=== PATIENT | male | born 1975 | race Caucasian/White ===

== ENCOUNTER 2016-11-12 18:30 | Emergency (ER) | payer BC ==
[2016-11-12 18:31] VITALS: BP 162/99; PULSE 74; RESP 14; TEMP 98.1; O2SAT 97
--- NOTE | 2016-11-12 19:19 | PD ---
HPI Chief Complaint: Chest Pain Time Seen by Provider: 19:19 Travel History International Travel<30 days: No Contact w/Intl Traveler<30days: No Traveled to known affect area: No History of Present Illness HPI 40-year-old male came to the emergency room with history of left-sided chest pain with some radiation to his left arm. This started about 2 and half hours ago while he was driving. Currently the pain is 2 out of 10 and patient says it certainly much better than when it first started. He did not take any medications. Patient has significant history of coronary artery disease with 2 stents being placed 4 years ago. There was some associated shortness of breath and he is burping constantly as he is talking. He attributes it to probably his GERD. However given his coronary artery disease history he thought it would be important to come to the emergency room and be checked. Patient is from [place] and he drove from there to [place] for vacation and today he was returning back. Vital signs were stable in the emergency room. Patient has history of anxiety and says he feels anxious right now. [facility] Past Medical History Narrative Medical List of his past medical history is reviewed from the nursing note. Patient quit smoking 15 days ago. Social History Tobacco Use: No Allergies-Medications (Allergen,Severity, Reaction): Coded Allergies: No Known Allergies (Unverified , 11/12/16) Comments No known drug allergies. Narrative Medication Awaiting for the nurse to complete the medical intensive sedation. Patient did tell me that he is on Plavix and takes all his medications like he is supposed to. His primary care reduced the dose of his antihypertensive after he has lost 160 pounds. Review of Systems Except as stated in HPI: all other systems reviewed are Neg Physical Exam Narrative GENERAL: Awake, alert, obese, anxious, mild distress, recurrent burping SKIN: Warm and dry. HEAD: Atraumatic. Normocephalic. EYES: Pupils equal and round. No scleral icterus. No injection or drainage. ENT: No nasal bleeding or discharge. Mucous membranes pink and moist. NECK: Trachea midline. No JVD. CARDIOVASCULAR: Regular rate and rhythm. No murmur appreciated. RESPIRATORY: No accessory muscle use. Clear to auscultation. Breath sounds equal bilaterally. GASTROINTESTINAL: Abdomen soft, non-tender, nondistended. Hepatic and splenic margins not palpable. MUSCULOSKELETAL: No obvious deformities. No clubbing. No cyanosis. No edema. NEUROLOGICAL: Awake and alert. No obvious cranial nerve deficits. Motor grossly within normal limits. Normal speech. PSYCHIATRIC: Appropriate mood and affect; insight and judgment normal. Data Data Last Documented VS Vital Signs Date Time Temp Pulse Resp B/P Pulse Ox O2 Delivery O2 Flow Rate FiO2 11/12/16 19:32 98 Room Air 11/12/16 18:31 98.1 74 14 162/99 Orders Electrocardiogram (11/12/16 19:26) Basic Metabolic Panel (Bmp) (11/12/16 19:26) Ckmb (Isoenzyme) Profile (11/12/16 19:26) Complete Blood Count With Diff (11/12/16 19:26) Magnesium (Mg) (11/12/16 19:26) Prothrombin Time / Inr (Pt) (11/12/16 19:26) Act Partial Throm Time (Ptt) (11/12/16 19:26) Troponin I (11/12/16 19:26) Chest, Single Ap (11/12/16 19:26) Ecg Monitoring (11/12/16 19:26) Bilateral Bp Monitoring (11/12/16 19:26) Iv Access Insert/Monitor (11/12/16 19:26) Oximetry (11/12/16 19:26) Oxygen Administration (11/12/16 19:26) D-Dimer (11/12/16 19:40) Alprazolam (Xanax) (11/12/16 20:00) Aspirin Chew (Aspirin Chew) (11/12/16 20:15) ^ Saline Lock (11/12/16 20:11) CKMB (11/12/16 19:35) CKMB% (11/12/16 19:35) Labs Laboratory Tests Test 11/12/16 19:35 White Blood Count 8.8 TH/MM3 Red Blood Count 5.57 MIL/MM3 Hemoglobin 16.6 GM/DL Hematocrit 48.6 % Mean Corpuscular Volume 87.3 FL Mean Corpuscular Hemoglobin 29.7 PG Mean Corpuscular Hemoglobin 34.1 % Concent Red Cell Distribution Width 13.2 % Platelet Count 233 TH/MM3 Mean Platelet Volume 9.2 FL Neutrophils (%) (Auto) 56.4 % Lymphocytes (%) (Auto) 30.6 % Monocytes (%) (Auto) 9.8 % Eosinophils (%) (Auto) 2.5 % Basophils (%) (Auto) 0.7 % Neutrophils # (Auto) 5.0 TH/MM3 Lymphocytes # (Auto) 2.7 TH/MM3 Monocytes # (Auto) 0.9 TH/MM3 Eosinophils # (Auto) 0.2 TH/MM3 Basophils # (Auto) 0.1 TH/MM3 CBC Comment DIFF FINAL Differential Comment Prothrombin Time 10.6 SEC Prothromb Time International 1.0 RATIO Ratio Activated Partial 27.6 SEC Thromboplast Time D-Dimer Quantitative (PE/DVT) 0.41 MG/L FEU Sodium Level 140 MEQ/L Potassium Level 4.0 MEQ/L Chloride Level 108 MEQ/L Carbon Dioxide Level 24.0 MEQ/L Anion Gap 8 MEQ/L Blood Urea Nitrogen 14 MG/DL Creatinine 1.13 MG/DL Estimat Glomerular Filtration 72 ML/MIN Rate Random Glucose 115 MG/DL Calcium Level 8.5 MG/DL Magnesium Level 2.3 MG/DL Total Creatine Kinase 180 U/L Creatine Kinase MB 1.7 NG/ML Troponin I LESS THAN 0.02 NG/ML MDM Medical Decision Making Medical Screen Exam Complete: Yes Emergency Medical Condition: Yes Medical Record Reviewed: Yes Interpretation(s) Twelve-lead EKG was reviewed by me. Normal sinus rhythm, normal axis, nonspecific ST-T wave changes. Heart rate of 77 bpm. Differential Diagnosis ACS, and non-STEMI, PE, nonspecific chest pain Narrative Course 8:10 PM patient has been given 0.5 mg of Xanax for his anxiety. Awaiting for the blood test results to come back. Patient does have a very high risk for ACS. I've explained this to him and if all the test results come back within normal limit I do intend to observe him and chest pain center. 8:50 PM awaiting for the d-dimer. Rest of the blood test results are within normal limits. However my medical student and just spoke with the patient and he has expressed his desire to leave. If he does end up leaving it would be against medical advise. He has been explained about this and the benefits of staying or leaving. Patient is in full capacity to make the decision for himself. 11:23 PM d-dimer was a send out lab because of the machine being broken at the main lab. It was just resulted in its within normal limit. Patient still wants to go home and he'll leave AMA. Procedures EKG Prior to Arrival: Yes Diagnosis Primary Impression: Chest pain Qualified Code: R07.9 - Chest pain, unspecified type Disposition: 07 AGAINST MEDICAL ADVICE Condition: Serious Omid Tang MD Nov 12, 2016 19:19
[2016-11-12 19:32] VITALS: O2SAT 98
[2016-11-12 19:56] LABS: BASOPHIL # 0.1 TH/MM3 (0-0.2); BASOPHIL % 0.7 % (0.0-2.0); EOSINOPHIL # 0.2 TH/MM3 (0-0.4); EOSINOPHIL % 2.5 % (0.0-4.0); HEMATOCRIT 48.6 % (39.0-51.0); HEMO FLAGS DIFF FINAL; LYMPH % 30.6 % (9.0-44.0); LYMPHOCYTE # 2.7 TH/MM3 (1.0-4.8); MEAN CELL VOLUME 87.3 FL (80.0-100.0); MEAN CORPUSCULAR HEMOGLOBIN 29.7 PG (27.0-34.0); MEAN CORPUSCULAR HGB CONC 34.1 % (32.0-36.0); MONO % 9.8 % (0.0-8.0); NEUT % 56.4 % (16.0-70.0); PLATELET COUNT 233 TH/MM3 (150-450); RED BLOOD COUNT 5.57 MIL/MM3 (4.50-5.90); RED CELL DISTRIBUTION WIDTH 13.2 % (11.6-17.2); WHITE BLOOD COUNT 8.8 TH/MM3 (4.0-11.0)
[2016-11-12] MEDS ORDERED: ALPRAZolam 0.5 MG TAB PO ONE (20:00)
[2016-11-12 20:09] LABS: APTT (PATIENT) 27.6 SEC (24.3-30.1); PROTHROMBIN TIME - PATIENT 10.6 SEC (9.8-11.6)
[2016-11-12] MEDS ORDERED: ASPIRIN 81 MG CHEW TAB CHEW ONE (20:15)
[2016-11-12 20:25] LABS: ANION GAP 8 MEQ/L (5-15); BLOOD UREA NITROGEN 14 MG/DL (7-18); CHLORIDE 108 MEQ/L (98-107); GLOMERULAR FILTRATION RATE 72 ML/MIN (>89); MAGNESIUM 2.3 MG/DL (1.5-2.5); SODIUM (NA) 140 MEQ/L (136-145)
[2016-11-12 20:29] LABS: CREATINE KINASE 180 U/L (39-308)
--- NOTE | 2016-11-12 20:40 | RADRPT ---
EXAM DATE/TIME: 11/12/2016 20:01 [facility] COMPARISON: No previous studies available for comparison. INDICATIONS : Chest pain today. MEDICAL HISTORY : Hypertension. Cardiovascular disease. SURGICAL HISTORY : Cardiac stents. ENCOUNTER: Initial ACUITY: 1 day PAIN SCORE: 6/10 LOCATION: Bilateral chest FINDINGS: A single view of the chest demonstrates the lungs to be symmetrically aerated without evidence of mas s, infiltrate or effusion. The cardiomediastinal contours are unremarkable. Osseous structures are intact. CONCLUSION: No acute disease. Miguel Palomino MD on November 12, 2016 at 20:38 Board Certified Radiologist. This report was verified electronically.
[2016-11-12 20:42] LABS: CKMB 1.7 NG/ML (0.5-3.6)
--- NOTE | 2016-11-13 11:37 | EKG ---
Date Performed: 11/12/2016 Time Performed: 19:23:50 PTAGE: 40 years EKG: Sinus rhythm NORMAL ECG NO PREVIOUS TRACING DOCTOR: Jerry Monique Interpretating Date/Time 11/13/2016 11:36:58
== END 2016-11-13 00:39 | disposition left against medical advice (07) ==
LOC: NEPE 18:30
DX: R07.9 Chest pain, unspecified (principal); F41.9 Anxiety disorder, unspecified; I25.10 Atherosclerotic heart disease of native coronary artery without angina pectoris; R06.02 Shortness of breath; Z87.891 Personal history of nicotine dependence
CPT/HCPCS: 71010; 80048; 82550; 82552; 83735; 84484; 85025; 85379; 85610; 85730; 93005